=== PATIENT | female | born 1955 | race Caucasian/White ===

== ENCOUNTER 2024-08-07 06:27 | Day surgery (SDC) | payer OTHER ==
[~2024-08-07] VITALS: Ht 165.1 cm; Wt 69.4 kg
[2024-08-07] MEDS ORDERED: PROPOFOL 200MG/ 20ML VIAL (DIPRIVAN) IV ONE (08:22)
[2024-08-07 10:14] VITALS: O2SAT 100
[2024-08-07 13:38] VITALS: BP_SYST 147; PULSE 78; RESP 17
== END 2024-08-07 11:17 | disposition home or self-care (01) ==
LOC: SMU 06:27 → SDS 06:27
PROVIDERS: ATTEND Internal Medicine Gastroenterology
DX: R13.10 Dysphagia, unspecified (principal); K29.50 Unspecified chronic gastritis without bleeding; K31.7 Polyp of stomach and duodenum; K22.89 Other specified disease of esophagus; K21.00 Gastro-esophageal reflux disease with esophagitis, without bleeding; K22.2 Esophageal obstruction; E03.9 Hypothyroidism, unspecified; E78.5 Hyperlipidemia, unspecified; K44.9 Diaphragmatic hernia without obstruction or gangrene; E07.89 Other specified disorders of thyroid; E66.3 Overweight; Z68.25 Body mass index [BMI] 25.0-25.9, adult; Z90.49 Acquired absence of other specified parts of digestive tract; Z98.890 Other specified postprocedural states; Z91.048 Other nonmedicinal substance allergy status; Z91.040 Latex allergy status
CPT/HCPCS: 43239; 43248; 71045; 93005; 82948; 88305; 88312; 88313; G0378; J2704; C1769